=== PATIENT | female | born 1975 | race Hispanic/Latino ===

== ENCOUNTER 2022-12-22 20:25 | Emergency (ER) | payer SELFPAY ==
[2022-12-22] MEDS ORDERED: Sodium Chloride 0.9% 500 ML ONE (20:53)
[2022-12-22] MEDS ORDERED: HYDROcodone/Acetaminophen 5/325 mg Tablet ONE (21:09)
== END 2022-12-22 22:17 | disposition home or self-care (01) ==
LOC: NAV ERS 20:25
DX: S91.351A Open bite, right foot, initial encounter (principal); W59.11XA Bitten by nonvenomous snake, initial encounter
CPT/HCPCS: 86850; 86900; 86901; 93005; J7030